=== PATIENT | female | born 2000 | race Two or more races ===

== ENCOUNTER 2024-04-15 15:20 | Outpatient (AMB) | payer SELFPAY ==
--- NOTE | 2024-04-15 15:30 | MHC.OFFVIS ---
Vital Signs 04/15/24 15:38 Height 5 ft 8 in Weight 139 lb 12.369 oz BMI 21.3 BP 104/66 Blood Pressure Location Lt brachial Position Sitting Pulse 84 Pulse Source Pulse Oximeter Pulse Oximetry (%) 100 Oxygen Delivery Method Room Air Intake Visit Reasons: Gastroesophageal reflux disease (GERD) Intake Note: Celestina presents in office today for an initial office visit. CC; Pt reports that they had original started with sx approximately in the middle of January 2024. Pt believed that they had originally had just food poisoning. However, pt states that sx have not greatly improved over the course of the last few months. Pt reports that their initial weight at the ED was approximately 170 lbs. They now weigh approximately 125 lbs. Pt states that the ED MD had informed them in conjunction with their PCP that they need to coordinate with a GI MD in order to treat this current condition. Pt states that they are currently experiencing lack of appetite, moderate tachycardia, further unintentional weight loss. Pt also reports that they have tried to continue to increase their food intake to combat some of these issues, with little success. Allergies fluticasone Adverse Reaction (Severe, Verified 04/15/24 15:34) Unknown HPI HPI Gastroesophageal reflux disease (GERD): Details: 23-year-old female with no significant past medical history is here today for initial consultation. Patient is accompanied by her mother. Patient reports that just recently her insurance was changed. Patient was on her mother's insurance and as she is still is in school she should be on her insurance and unsure why she was ask to reapply on her own. 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 Reports that in the middle of January she ate food and her and her whole family got sick with vomiting and diarrhea and severe epigastric discomfort. Patient reports that everyone got better, however she started feeling worse. After couple days of feeling like this patient went to ED to [facility] where they did blood work. CT scan was not done at that time. Patient had no leukocytosis and essentially normal blood work. Patient was placed on sucralfate and Reglan. Patient states that sucralfate did not made her feel better. Patient reports that she continues to have epigastric pain no matter what she eats. Patient states that she also has associated symptoms of tachycardia after eating meals. Patient reports that she is afraid to eat as she the that she will get more sick. Patient saw warranty coordinator and had event monitor for 30 days and nothing was found. Patient continues to have occasional postprandial tachycardia. At this time patient admits to be anxious not only about her symptoms and also about weight loss in addition patient reports that she is in a difficult program at school and is under a lot of stress. Patient denies any melena, hematochezia. Reports that she is going to the bathroom well with bowel movements. [facility], [facility] Medical History (Updated 04/15/24 @ 15:37 by Augustine Doherty [facility]) COVID-19 Review of Systems Const Denies weight gain and Reports weight loss ENT Reports no additional complaints, Denies dysphagia and Denies odynophagia Card Reports other (Palpitations) Resp Reports no additional complaints GI Reports abdominal pain, Denies belching, Denies melena, Reports bloating, Denies change in bowel habits, Denies dysphagia, Denies excessive flatus, Denies dyspepsia, Reports heartburn, Denies diarrhea, Denies loose stools, Denies nausea, Denies odynophagia and Denies vomiting Reports no additional complaints Musc Reports no additional complaints Neuro Reports no additional complaints Psych Reports no additional complaints Endo Reports no additional complaints Physical Exam Vital Signs: Last Vital Signs Pulse 84 04/15/24 15:38 BP 104/66 04/15/24 15:38 Pulse Ox 100 04/15/24 15:38 Oxygen Delivery Method Room Air 04/15/24 15:38 BMI result Body Mass Index 21.3 Const General: healthy appearing, no acute distress and well developed Nutritional Appearance: well nourished Orientation/consciousness: patient oriented x3 Resp Effort & Inspection: normal respiratory effort, able to speak in complete sentences, no tracheal deviation and symmetric chest movement Auscultation: clear to auscultation bilaterally Cardio Rate: regular rate GI Inspection: Yes normal to inspection and No distended Palpation (GI): Soft to palpation, not firm, nontender and No hepatosplenomegaly present Auscultation: normal bowel sounds General: Yes no CVA tenderness Back/Spine/Pelvis Back: no CVA tenderness Skin General skin exam: elasticity normal, turgor normal and dry skin Neuro General: patient oriented x3 Psych Appearance: grossly normal Mental Status: mental status grossly normal Assessment & Plan Assessment & Plan (1) Postprandial epigastric pain: Code(s): R10.13 - Epigastric pain (2) Postprandial abdominal bloating: Code(s): R14.0 - Abdominal distension (gaseous) (3) Abdominal pain: Code(s): R10.9 - Unspecified abdominal pain Qualifiers: Abdominal location: epigastric Qualified Code(s): R10.13 - Epigastric pain (4) Weight loss, unintentional: Code(s): R63.4 - Abnormal weight loss (5) GERD (gastroesophageal reflux disease): Code(s): K21.9 - Gastro-esophageal reflux disease without esophagitis Qualifiers: Esophagitis presence: esophagitis presence not specified Qualified Code(s): K21.9 - Gastro-esophageal reflux disease without esophagitis Plan Patient will be sent for lab work. Discussed with her avoiding dietary triggers and staying away from spicy food. Low FODMAP diet discussed with patient. Patient will start taking Nexium in the morning and sucralfate at bedtime. Lab work ordered. Vitamin-D, magnesium, H pylori, lipase, liver panel, thyroid study, vitamin B12, folate, pancreatic elastase as well as PTH levels. Patient will return in 5 weeks. Patient will call our office if she will have any additional or worsening GI symptoms. Patient was given lots of encouragement and positive feedback on mind over matter behavior when it comes to her palpitations. Both patient and her mom are agreeable to plan of care and verbalizes understanding of instructions. They were given the opportunity to ask questions and all questions answered. Thank you for allowing me to participate in her care Orders: Orders Vitamin D 25-OH (D2 and D3) 04/15/24 E55.9 - Vitamin D deficiency, unspecified Magnesium 04/15/24 N18.9 - Chronic kidney disease, unspecified H pylori Ag Stool 04/15/24 K21.9 - Gastro-esophageal reflux disease without esophagitis Lipase 04/15/24 R10.9 - Unspecified abdominal pain Liver Panel 04/15/24 R74.01 - Elevation of levels of liver transaminase levels TSH reflex Free T4 04/15/24 K59.00 - Constipation, unspecified Vitamin B12 and Folate 04/15/24 R19.7 - Diarrhea, unspecified Pancreatic Elastase-1 04/15/24 R10.9 - Unspecified abdominal pain Parathyroid Hormone Intact 04/15/24 R63.4 - Abnormal weight loss Medications: New esomeprazole magnesium (Nexium) 40 mg PO DAILY 90 caps 5RF K21.9 - Gastro-esophageal reflux disease without esophagitis sucralfate 1 g PO DAILY 60 tabs 1RF R19.7 - Diarrhea, unspecified Coding Level of Care Code New Pt Level 5 (37436) Diagnoses Postprandial epigastric pain R10.13 Postprandial abdominal bloating R14.0 Epigastric pain R10.13 Abdominal location: epigastric Weight loss, unintentional R63.4 Gastroesophageal reflux disease, unspecified whether esophagitis present K21.9 Esophagitis presence: esophagitis presence not specified Time Spent (min) 55 Comment 35 minutes spent with patient and additional 20 minutes spent reviewing her records
[2024-04-15 15:38] VITALS: BP 104/66; PULSE 84; O2SAT 100; BMI 21.3
== END 2024-04-15 16:15 | disposition home or self-care (01) ==
PROVIDERS: Visit Provider Nurse Practitioner Family
DX: K21.9 Gastro-esophageal reflux disease without esophagitis (principal); R10.13 Epigastric pain; R14.0 Abdominal distension (gaseous); R63.4 Abnormal weight loss
CPT/HCPCS: 99204

== ENCOUNTER → 2024-04-15 15:20 | Outpatient (BNVA) | payer SELFPAY | PROVIDERS: Visit Provider Nurse Practitioner Family | DX: K21.9 Gastro-esophageal reflux disease without esophagitis (principal); R10.13 Epigastric pain; R14.0 Abdominal distension (gaseous); R63.4 Abnormal weight loss | CPT/HCPCS: 99202 ==

== ENCOUNTER 2024-05-14 16:36 | Outpatient (REF) | payer MEDICAID, SELFPAY ==
[2024-05-14 17:34] LABS: Alanine Aminotransferase 9 U/L (0-31); Albumin Level 4.2 g/dL (3.5-5.0); Alkaline Phosphatase 53 U/L (39-117); Aspartate Amino Transferase 11 U/L (5-31); Bilirubin Direct 0.2 mg/dL (0.0-0.5); Bilirubin Total 0.5 mg/dL (0.0-1.0); Lipase 29 U/L (8-78); Magnesium 2.1 mg/dL (1.6-2.6); Total Protein 7.4 g/dL (6.5-8.0)
[2024-05-14 17:50] LABS: TSH reflex Free T4 1.17 uIU/mL (0.32-4.0)
== END 2024-05-14 16:37 | disposition home or self-care (01) ==
LOC: HO.LAB 16:36
PROVIDERS: Visit Provider Nurse Practitioner Family
DX: R10.9 Unspecified abdominal pain (principal); R74.01 Elevation of levels of liver transaminase levels; K59.00 Constipation, unspecified; N18.9 Chronic kidney disease, unspecified; E55.9 Vitamin D deficiency, unspecified; K21.9 Gastro-esophageal reflux disease without esophagitis
CPT/HCPCS: 36415; 80076; 83690; 83735; 84443